=== PATIENT | male | born 1980 | race Caucasian/White ===

== ENCOUNTER 2018-12-04 10:44 | Emergency (ER) | payer MEDICAID ==
[~2018-12-04] VITALS: Ht 177.8 cm; Wt 99.8 kg
[2018-12-04] MEDS ORDERED: Bactrim Ds Tab1 EACH PO (11:01)
[2018-12-04] MEDS ORDERED: CEPH500 PO (11:01)
== END 2018-12-04 11:19 | disposition home or self-care (01) ==
LOC: ER 10:44
DX: L02.411 Cutaneous abscess of right axilla (principal); F17.210 Nicotine dependence, cigarettes, uncomplicated
CPT/HCPCS: 99283